=== PATIENT | male | born 1985 | race Caucasian/White ===

== ENCOUNTER 2016-12-27 18:36 | Emergency (ER) | payer OTHER ==
--- NOTE | 2016-12-27 18:40 | NUR ---
BIB [facility] 81 WHO STATE PT WAS FOUND UNRESPONSIVE IN HIS CAR. PT ARRIVED AMBULATORY AND A/OX4. PT DENIED ANY S.I. BUT REFUSED TO ANSWER ANY FURTHER QUESTIONS AND TRIAGE. PT STATED HE DID NOT WANT TO BE SEEN AND WALKED OUT OF ER. PER EMS [employer] WERE ON SCENE.
== END 2016-12-27 18:57 | disposition left against medical advice (07) ==
LOC: ER 18:37
DX: Z53.21 Procedure and treatment not carried out due to patient leaving prior to being seen by health care provider (principal)